=== PATIENT | male | born 1970 | race Caucasian/White ===

== ENCOUNTER 2023-10-24 05:45 | Emergency (ER) | payer BC ==
[~2023-10-24] VITALS: Ht 177.8 cm; Wt 76.0 kg
[2023-10-24] MEDS: KETOROLAC 30 MG/ML 1ML VIAL IV ONE (06:23)
[2023-10-24] MEDS: ONDANSETRON 4MG 2ML VIAL IV ONE (06:23)
[2023-10-24] MEDS: NS 500 ML IV ONE (06:24)
[2023-10-24 06:30] LABS: BASO # 0.1 10^3/uL (0.0-0.2); BASO % 0.5 % (0.0-1.0); EOS # 0.1 10^3/uL (0.0-0.5); EOS % 1.5 % (0.0-3.0); HEMATOCRIT 42.6 % (42.0-52.0); HEMOGLOBIN 14.6 g/dl (13.5-17.5); LYMPH # 3.8 10^3/uL (1.5-5.0); LYMPH % 40.2 % (24.0-44.0); MEAN CORPUSCULAR HEMOGLOBIN 29.8 pg (27.0-33.0); MEAN CORPUSCULAR HGB CONC 34.3 g/dl (32.0-36.5); MEAN CORPUSCULAR VOLUME 86.9 fl (80.0-96.0); MONO % 10.5 % (2.0-8.0); NEUTROPHILS # 4.5 10^3/uL (1.5-8.5); PLATELET COUNT, AUTOMATED 305 10^3/uL (150-450); WHITE BLOOD COUNT 9.5 10^3/uL (4.0-10.0)
[2023-10-24 06:58] LABS: LIPASE 30 U/L (12-53)
[2023-10-24 07:01] LABS: ALBUMIN 4.1 G/DL (3.2-5.2); ALKALINE PHOSPHATASE 90 U/L (46-116); ALT/SGPT 24 U/L (7.0-40); AST/SGOT 19 U/L (<34); BILIRUBIN,DIRECT 0.3 MG/DL (<0.4); BILIRUBIN,TOTAL 0.7 MG/DL (0.3-1.2); BLOOD UREA NITROGEN 14 MG/DL (9-23); CALCIUM LEVEL 9.2 MG/DL (8.5-10.1); CARBON DIOXIDE LEVEL 26 MMOL/L (20-31); CHLORIDE LEVEL 104 MMOL/L (98-107); CREATININE FOR GFR 1.32 MG/DL (0.70-1.30); GLOMERULAR FILTRATION RATE > 60.0 (>56); GLUCOSE, FASTING 160 MG/DL (60-100); POTASSIUM SERUM 3.5 MMOL/L (3.5-5.1); SODIUM LEVEL 138 MMOL/L (136-145); TOTAL PROTEIN 7.6 G/DL (5.7-8.2)
[2023-10-24] MEDS ORDERED: IBUP-1022 PO (08:12)
[2023-10-24] MEDS ORDERED: FLOM0.4C39 PO (08:12)
[2023-10-24] MEDS ORDERED: HYDR-3713 PO (08:12)
[2023-10-24] MEDS ORDERED: ONDA4TAB6 PO (08:12)
[2023-10-24 08:17] VITALS: BP 132/77; TEMP 97; O2SAT 99
== END 2023-10-24 08:43 | disposition home or self-care (01) ==
LOC: M ED 05:45
DX: N20.1 Calculus of ureter (principal); Z91.030 Bee allergy status; Z79.1 Long term (current) use of non-steroidal anti-inflammatories (NSAID); Z79.899 Other long term (current) drug therapy
CPT/HCPCS: 74176; 80048; 80076; 81001; 83690; 85025; 96361; 96374; 99284; J1885; J2405